=== PATIENT | male | born 1995 | race Caucasian/White ===

== ENCOUNTER 2017-03-05 21:08 | Emergency (ER) | payer OTHER ==
[~2017-03-05] VITALS: Ht 185.4 cm; Wt 72.6 kg
[2017-03-05 21:08] VITALS: BP 149/83
[~2017-03-05 21:08] MED LIST: ACET160O49 PO; ALBU8.5H8 IH; CETI10TA22 PO; FLUT9.9S NS; IBUP100O24 PO; NAPR500T8 PO
--- NOTE | 2017-03-05 21:27 | PHYS DOC ---
Past History Past Medical History: Migraines, Other Past Surgical History: Tonsillectomy, Other Smoking: Non-smoker Alcohol Use: None Drug Use: None Adult General Chief Complaint Chief Complaint: TOE PROBLEM HPI HPI Patient is a pleasant 21-year-old male with no major medical problems with exception of migraines who presents with sudden onset of left big toe pain as he was crushed by a meat cutting teacher. Patient was in the garage wearing shoes helping his dad move her meat cutting teacher when one location to next when they accidentally dropped this machine which was but 150 pounds onto his left big toe. He is complaining of pain specifically with walking and directly over the toe itself. He also claims that there is a slight deviation in the toe shape. There is no active bleeding, no laceration no numbness and tingling to the foot. This pain with walking and range of motion. Patient does not know if his tetanus shot is up-to-date. Review of Systems Review of Systems Constitutional: Denies fever or chills [] Musculoskeletal: Denies back pain patient does complain of left big toe pain. Integument: Denies rash or skin lesions [] Neurologic: Denies focal weakness or sensory changes [] Current Medications Current Medications Current Medications Medications (Trade) Dose Ordered Sig/Kiana Start Time Stop Time Status Last Admin Dose Admin Acetaminophen/ Hydrocodone Bitart (Lortab 5/325) 2 tab 1X ONCE 03/05/17 21:30 03/05/17 21:31 UNV Diphtheria/ Tetanus/Acell Pertussis (Boostrix) 0.5 ml ONCE ONCE 03/05/17 21:30 03/05/17 21:31 UNV Allergies Allergies Allergies Coded Allergies Type Severity Reaction Last Updated Verified No Known Drug Allergies 05/22/15 No Physical Exam Physical Exam Vital signs recorded on the chart they're within normal limits Constitutional: Well developed, well nourished, no acute distress, non-toxic appearance. [] Cardiovascular:Heart rate regular rhythm, no murmur [] Lungs & Thorax: Bilateral breath sounds clear to auscultation [] Skin: Warm, dry, no erythema, no rash. extremities: Patient has tenderness to palpation over the lateral and medial aspect of his left big toe is a small less than 10% small hematoma underneath the nail of the big toe. There is no obvious crepitus there is bony to palpation along the distal phalanx of that first toe. No laceration and no active bleeding.[] Neurologic: Alert and oriented X 3, normal motor function, normal sensory function, no focal deficits noted. [] Psychologic: Affect normal, judgement normal, mood normal. [] EKG EKG [] Radiology/Procedures Radiology/Procedures []Agents 3 view foot film timed 9:31 PM [id number] demonstrates no acute fracture within the big toe no tuft fracture no substance air or foreign body. Course & Med Decision Making Course & Med Decision Making Pertinent Labs and Imaging studies reviewed. (See chart for details) he presents with a crush injury to the left big toe no obvious fracture on x-ray. Patient will be having an updated tetanus shot, given pain medications for his crush injury. There is no evidence of compartment syndrome at this time. We discussed compartment syndrome evaluation and element based on soft tissue I'll encourage him to elevate this wound ice the wound take pain medicine as necessary. Follow-up with podiatry if pain continues as subtle fractures can be missed on initial presentation early films. [] Dragon Disclaimer Dragon Disclaimer This chart was dictated in whole or in part using Voice Recognition software in a busy, high-work load, and often noisy Emergency Department environment. It may contain unintended and wholly unrecognized errors or omissions. Departure Departure: Impression: Primary Impression: Crush injury, toe Disposition: 01 HOME, SELF-CARE Condition: IMPROVED Referrals: JOHANA BALTAZAR DO (PCP) Patient Instructions: Crush Injury, Fingers or Toes Additional Instructions: My discharge plan Follow up: In addition patient is asked to followup with their primary doctor, within a week for followup examination and to address patient's ongoing medical conditions. Because patient does not have a regular medical doctor, a local physician Resource Sheet will be provided to establish care primary care. Patient is advised that in the Emergency Department primary complaints are addressed and only in light of known signs and symptoms. Patient should return immediately to the emergency department if new signs and symptoms develop or patient's condition worsens in any way. At time of discharge patient was in stable condition and had verbalized understanding of the discharge instructions. Scripts Hydrocodone Bit/Acetaminophen (HYDROCODONE-APAP 5-325 ) 1 Each Tablet 1 TAB PO PRN Q6HRS Y for PAIN, #10 TAB 0 Refills Prov: AMOL DOYLE MD 03/05/17 AMOL DOYLE MD Mar 05, 2017 21:26
[2017-03-05] MEDS ORDERED: HYDROcodone/APAP 5/325MG 1 TAB TABLET PO ONE (21:30)
[2017-03-05] MEDS ORDERED: DIPHTH,PERTUSS(ACELL),TET TOX 0.5 ML DISP.SYRIN. VAX IM ONE (21:45)
[2017-03-05] MEDS ORDERED: HYDR-2758 PO (21:45)
--- NOTE | 2017-03-06 08:07 | RAD ---
Exam: Left foot radiograph 03/05/2017 at 2131 hours Indication: Heavy item couple left foot Comparison: With bleeding around the left first digit Technique: 3 views of the left foot are provided. Findings: There is no acute fracture or dislocation. No joint space narrowing. No soft tissue swelling. No osseous erosion or soft tissue gas. Bone mineralization is within normal limits. Impression: No acute fracture or dislocation.
== END 2017-03-05 22:07 | disposition home or self-care (01) ==
LOC: ER 21:08
DX: S97.112A Crushing injury of left great toe, initial encounter (principal); G43.909 Migraine, unspecified, not intractable, without status migrainosus; W20.8XXA Other cause of strike by thrown, projected or falling object, initial encounter; Y93.89 Activity, other specified; Y99.8 Other external cause status; Y92.59 Other trade areas as the place of occurrence of the external cause
CPT/HCPCS: 73630; 90471; 90715; 99284-25